=== PATIENT | male | born 1960 | race Caucasian/White ===

== ENCOUNTER 2021-07-27 16:27 | Inpatient (IN) ==
[2021-07-27] MEDS ORDERED: Isovue-370 500 ML BOTTLE IVP ONE (16:36)
[2021-07-27 16:59] LABS: ABG Base Excess 4 mEq/L (-2 to 3); ABG HCO3 34 mEq/L (21-27); ABG Oxygen Saturation 98 % (95-98); ABG PCO2 72 mmHg (35-45); ABG PH 7.29 pH Units (7.32-7.45); ABG PO2 126 mmHg (85-104); ABG TCO2 37 mEq/L (20-26)
[2021-07-27 17:00] LABS: Basophils # 0.1 K/mcL (0.0-0.2); Basophils % 0.4 %; Hemoglobin 17.5 g/dL (12.9-16.9); Immature Granulocytes % 0.5 % (0-4); Lymphocytes # 2.2 K/mcL (0.6-4.6); Lymphocytes % 14.7 %; Mean Corpuscular HGB Conc 32.4 g/dL (31.6-35.5); Mean Corpuscular Hemoglobin 29.3 pg (28.0-33.3); Mean Corpuscular Volume 90.3 fL (83.0-100.0); Mean Platelet Volume 10.1 fL (9.4-12.4); Monocytes % 6.4 %; Neutrophils # 11.7 K/mcL (1.6-8.9); Platelet Count 198 K/mcL (140-400); Red Blood Count 5.98 M/mcL (4.19-5.50); Red Cell Distribution Width 14.1 % (11.5-14.5)
[2021-07-27 17:17] LABS: INR 1.1; Prothrombin Time 12.1 Seconds (9.4-12.1)
[2021-07-27 17:19] LABS: Activated Partial Thrombo Time 34.6 Seconds (26.0-36.0)
[2021-07-27 17:28] LABS: Alanine Aminotransferase 24 Units/L (7-52); Albumin/Globulin Ratio 1.1 (1.1-2.2); Alkaline Phosphatase 93 Units/L (34-104); Aspartate Amino Transferase 21 Units/L (13-39); BUN/Creatinine Ratio 19 (6-26); Bilirubin,Direct 0.1 mg/dL (0.0-0.2); Bilirubin,Indirect 0.6 mg/dL (0.0-1.0); Bilirubin,Total 0.7 mg/dL (0.3-1.0); Blood Urea Nitrogen 20 mg/dL (8-23); Carbon Dioxide 36 mEq/L (23-29); Chloride 94 mEq/L (98-107); Globulin 3.7 g/dL (2.4-3.5); Glucose 326 mg/dL (70-105); Osmolality,Calculated 299 (280-300); Potassium 3.6 mEq/L (3.5-5.1); Sodium 137 mEq/L (136-145); Total Protein 7.7 g/dL (6.4-8.9); Troponin I 0.04 ng/mL (< 0.04); eGFR For African Americans > 60 (> 60); eGFR For Non-African Americans > 60 (> 60)
[2021-07-27] MEDS ORDERED: cefTRIAXone 1,000 MG in Water for inj. (sterile) 10 ML IVP ONE (18:28)
[2021-07-27 19:08] LABS: Influenza A PCR Negative (Negative); Influenza B PCR Negative (Negative); Resp. Syncytial Virus PCR Positive (Negative); SARS-CoV-2 by PCR (In House) Negative (Negative)
[2021-07-27] MEDS ORDERED: Ipratropium/Albuterol Neb 3 ML ONE (19:50)
[2021-07-27] MEDS: Ipratropium/Albuterol Neb 3 ML IH ONE ×3 (19:50→20:15)
[2021-07-27] MEDS ORDERED: Ondansetron 4 MG/2 ML VIAL IVP PRN (20:43)
[2021-07-27] MEDS ORDERED: Naloxone 0.4 MG/ML INJ IVP PRN (20:43)
[2021-07-27] MEDS ORDERED: Ipratropium/Albuterol Neb 3 ML IH PRN (20:46)
[2021-07-27] MEDS ORDERED: Dextrose Gel 15 GM/37.5 ML TUBE PO PRN ×2 (20:47)
[2021-07-27] MEDS ORDERED: *HR* Dextrose 50 % in Water (Syg) 50 ML SYRINGE IVP PRN (20:47)
[2021-07-27] MEDS ORDERED: D5% in Water 1,000 ML IVC PRN (20:47)
[2021-07-27 21:03] LABS: ABG Base Excess 8 mEq/L (-2 to 3); ABG HCO3 40 mEq/L (21-27); ABG Oxygen Saturation 81 % (95-98); ABG PCO2 85 mmHg (35-45); ABG PH 7.28 pH Units (7.32-7.45); ABG PO2 54 mmHg (85-104); ABG TCO2 43 mEq/L (20-26); Blood Gas Modality CPAP/PS; Blood Gas Pressure Support 12 cm H2O
[2021-07-27] MEDS: Azithromycin 500 MG in 0.9 % Sodium Chloride 250 ML IVPB SCH (21:04)
[2021-07-28 02:00] LABS: ABG Base Excess 10 mEq/L (-2 to 3); ABG HCO3 41 mEq/L (21-27); ABG Oxygen Saturation 95 % (95-98); ABG PCO2 76 mmHg (35-45); ABG PH 7.34 pH Units (7.32-7.45); ABG PO2 86 mmHg (85-104); ABG TCO2 43 mEq/L (20-26); Blood Gas Pressure Support 12 cm H2O
[2021-07-28] MEDS: methylPREDNISolone 125 MG/2 ML VIAL IVP SCH ×2 (06:12→17:03)
[2021-07-28 06:47] LABS: Basophils % 0.1 %; Hematocrit 49.5 % (37.5-50.1); Immature Granulocytes % 0.4 % (0-4); Lymphocytes # 1.2 K/mcL (0.6-4.6); Lymphocytes % 6.4 %; Mean Corpuscular HGB Conc 32.3 g/dL (31.6-35.5); Mean Corpuscular Hemoglobin 29.9 pg (28.0-33.3); Mean Corpuscular Volume 92.4 fL (83.0-100.0); Mean Platelet Volume 10.4 fL (9.4-12.4); Monocytes # 0.7 K/mcL (0.0-1.3); Monocytes % 3.7 %; Neutrophils # 15.9 K/mcL (1.6-8.9); Platelet Count 187 K/mcL (140-400); Red Blood Count 5.36 M/mcL (4.19-5.50); Red Cell Distribution Width 14.1 % (11.5-14.5); Segmented Neutrophils % 89.4 %; White Blood Count 17.8 K/mcL (4.3-11.1)
[2021-07-28 07:08] LABS: BUN/Creatinine Ratio 18 (6-26); Blood Urea Nitrogen 17 mg/dL (8-23); Calcium 9.2 mg/dL (8.6-10.3); Carbon Dioxide 38 mEq/L (23-29); Chloride 91 mEq/L (98-107); Chol/HDL Ratio 3.9 (0-4.9); Cholesterol 106 mg/dL (< 200); Glucose 423 mg/dL (70-105); HDL Cholesterol 27 mg/dL (40-59); LDL Cholesterol,Calculated 59 mg/dL (< 100); Magnesium 1.8 mg/dL (1.6-2.6); Osmolality,Calculated 294 (280-300); Potassium 4.3 mEq/L (3.5-5.1); Sodium 132 mEq/L (136-145); Triglycerides 102 mg/dL (< 150); eGFR For African Americans > 60 (> 60); eGFR For Non-African Americans > 60 (> 60)
[2021-07-28 07:20] LABS: Thyroid Stimulating Hormone 0.193 mcIU/mL (0.340-5.600)
[2021-07-28] MEDS: Insulin LISPRO 300 UNITS/3 ML VIAL SUBQ SCH ×4 (08:08→23:29)
[2021-07-28] MEDS: Cholecalciferol (D-3) 1,000 UNIT (25MCG) TABLET PO SCH (08:09)
[2021-07-28] MEDS: Loratadine 10 MG TABLET PO SCH (08:09)
[2021-07-28] MEDS: amLODIPine 5 MG TABLET PO SCH (08:09)
[2021-07-28] MEDS: Aspirin Enteric Coated 81 MG Tablet PO SCH (08:09)
[2021-07-28] MEDS: *HR* Enoxaparin 40 MG/0.4 ML SYRINGE SQ SCH (08:12)
[2021-07-28] MEDS: cefTRIAXone 1,000 MG in 0.9 % Sodium Chloride Mini Bag 100 ML IVPB SCH (08:12)
[2021-07-28] MEDS ORDERED: *HR* Glimepiride 4 MG TABLET PO SCH (09:00)
[2021-07-28 09:48] LABS: Estimated Average Glucose 197 mg/dl; Hemoglobin A1C 8.5 %
[2021-07-28] MEDS: Ipratropium/Albuterol Neb 3 ML IH SCH ×4 (11:45→23:31)
[2021-07-28] MEDS ORDERED: Insulin LISPRO 300 UNITS/3 ML VIAL SUBQ SCH (11:53)
[2021-07-28 13:43] LABS: C-Reactive Protein 170 mg/L (Less than 10)
[2021-07-28 15:34] LABS: Bacteria,Urine Few per hpf (None-Few); Bilirubin,Urine Negative (Negative); Blood,Urine Negative (Negative); Clarity,Urine Clear (Clear); Color,Urine Light-Yellow (Yellow); Glucose,Urine (UA) >=1000 mg/dL (Normal); Ketones,Urine Negative (Negative); Leukocyte Esterase,Urine Negative (Negative); Nitrite,Urine Negative (Negative); Protein,Urine Trace mg/dL (Neg-Trace); RBC,Urine 0-3 per hpf (0-3); Specific Gravity,Urine > 1.030 (1.010-1.025); Urobilinogen,Urine Normal (Normal); WBC,Urine 0-3 per hpf (0-3)
[2021-07-28] MEDS: Insulin DETEMIR 100 UNIT/ML X5UNITS SUBQ SCH (16:59)
[2021-07-28] MEDS ORDERED: Insulin DETEMIR 100 UNIT/ML X5UNITS SUBQ SCH (17:00)
[2021-07-28] MEDS: Azithromycin 500 MG in 0.9 % Sodium Chloride 250 ML IVPB SCH (20:32)
[2021-07-29] MEDS: Ipratropium/Albuterol Neb 3 ML IH SCH ×6 (03:44→23:44)
[2021-07-29] MEDS: methylPREDNISolone 125 MG/2 ML VIAL IVP SCH ×2 (05:13→16:49)
[2021-07-29 05:24] LABS: Basophils % 0.2 %; Hematocrit 47.5 % (37.5-50.1); Hemoglobin 15.7 g/dL (12.9-16.9); Immature Granulocytes % 0.9 % (0-4); Lymphocytes # 1.9 K/mcL (0.6-4.6); Lymphocytes % 10.9 %; Mean Corpuscular HGB Conc 33.1 g/dL (31.6-35.5); Mean Corpuscular Hemoglobin 30.5 pg (28.0-33.3); Mean Corpuscular Volume 92.4 fL (83.0-100.0); Monocytes # 1.3 K/mcL (0.0-1.3); Monocytes % 7.6 %; Platelet Count 225 K/mcL (140-400); Red Blood Count 5.14 M/mcL (4.19-5.50); Red Cell Distribution Width 13.8 % (11.5-14.5); Segmented Neutrophils % 80.4 %; White Blood Count 17.4 K/mcL (4.3-11.1)
[2021-07-29 05:29] LABS: BUN/Creatinine Ratio 26 (6-26); Blood Urea Nitrogen 24 mg/dL (8-23); Calcium 9.8 mg/dL (8.6-10.3); Carbon Dioxide 38 mEq/L (23-29); Chloride 93 mEq/L (98-107); Glucose 321 mg/dL (70-105); Osmolality,Calculated 292 (280-300); Potassium 3.8 mEq/L (3.5-5.1); Sodium 133 mEq/L (136-145); eGFR For African Americans > 60 (> 60); eGFR For Non-African Americans > 60 (> 60)
[2021-07-29 08:06] LABS: ABG Base Excess 10 mEq/L (-2 to 3); ABG HCO3 43 mEq/L (21-27); ABG Oxygen Saturation 95 % (95-98); ABG PCO2 96 mmHg (35-45); ABG PH 7.26 pH Units (7.32-7.45); ABG PO2 95 mmHg (85-104); ABG TCO2 46 mEq/L (20-26)
[2021-07-29] MEDS: Insulin LISPRO 300 UNITS/3 ML VIAL SUBQ SCH ×3 (08:13→16:52)
[2021-07-29] MEDS: Aspirin Enteric Coated 81 MG Tablet PO SCH (08:16)
[2021-07-29] MEDS: Loratadine 10 MG TABLET PO SCH (08:16)
[2021-07-29] MEDS: Cholecalciferol (D-3) 1,000 UNIT (25MCG) TABLET PO SCH (08:17)
[2021-07-29] MEDS: amLODIPine 5 MG TABLET PO SCH (08:17)
[2021-07-29] MEDS: cefTRIAXone 1,000 MG in 0.9 % Sodium Chloride Mini Bag 100 ML IVPB SCH (08:22)
[2021-07-29] MEDS: Insulin DETEMIR 100 UNIT/ML X5UNITS SUBQ SCH ×2 (08:23→21:11)
[2021-07-29] MEDS: *HR* Enoxaparin 40 MG/0.4 ML SYRINGE SQ SCH (08:23)
[2021-07-29] MEDS: Acetaminophen 325 MG TABLET PO PRN (17:00)
[2021-07-29] MEDS: Benzonatate 100 MG CAPSULE PO PRN (17:00)
[2021-07-29] MEDS ORDERED: Insulin LISPRO 300 UNITS/3 ML VIAL SUBQ SCH (21:00)
[2021-07-29] MEDS: Azithromycin 500 MG in 0.9 % Sodium Chloride 250 ML IVPB SCH (21:12)
[2021-07-30] MEDS: Ipratropium/Albuterol Neb 3 ML IH SCH ×6 (03:29→23:26)
[2021-07-30] MEDS: methylPREDNISolone 125 MG/2 ML VIAL IVP SCH ×2 (06:10→18:42)
[2021-07-30 06:40] LABS: Basophils % 0.2 %; Hematocrit 48.4 % (37.5-50.1); Hemoglobin 15.2 g/dL (12.9-16.9); Immature Granulocytes % 1.3 % (0-4); Lymphocytes # 1.7 K/mcL (0.6-4.6); Lymphocytes % 10.2 %; Mean Corpuscular HGB Conc 31.4 g/dL (31.6-35.5); Mean Corpuscular Hemoglobin 29.2 pg (28.0-33.3); Mean Corpuscular Volume 92.9 fL (83.0-100.0); Mean Platelet Volume 9.9 fL (9.4-12.4); Monocytes # 1.1 K/mcL (0.0-1.3); Monocytes % 6.9 %; Neutrophils # 13.4 K/mcL (1.6-8.9); Platelet Count 242 K/mcL (140-400); Red Blood Count 5.21 M/mcL (4.19-5.50); Red Cell Distribution Width 13.9 % (11.5-14.5); Segmented Neutrophils % 81.4 %; White Blood Count 16.5 K/mcL (4.3-11.1)
[2021-07-30 07:17] LABS: BUN/Creatinine Ratio 32 (6-26); Blood Urea Nitrogen 29 mg/dL (8-23); Calcium 9.4 mg/dL (8.6-10.3); Carbon Dioxide 41 mEq/L (23-29); Chloride 94 mEq/L (98-107); Glucose 323 mg/dL (70-105); Osmolality,Calculated 300 (280-300); Potassium 4.3 mEq/L (3.5-5.1); Sodium 136 mEq/L (136-145); eGFR For African Americans > 60 (> 60); eGFR For Non-African Americans > 60 (> 60)
[2021-07-30] MEDS: *HR* Enoxaparin 40 MG/0.4 ML SYRINGE SQ SCH (07:39)
[2021-07-30] MEDS: Cholecalciferol (D-3) 1,000 UNIT (25MCG) TABLET PO SCH (07:39)
[2021-07-30] MEDS: Aspirin Enteric Coated 81 MG Tablet PO SCH (07:40)
[2021-07-30] MEDS: amLODIPine 5 MG TABLET PO SCH (07:40)
[2021-07-30] MEDS: Loratadine 10 MG TABLET PO SCH (07:42)
[2021-07-30] MEDS: Insulin LISPRO 300 UNITS/3 ML VIAL SUBQ SCH ×3 (07:43→15:56)
[2021-07-30] MEDS: cefTRIAXone 1,000 MG in 0.9 % Sodium Chloride Mini Bag 100 ML IVPB SCH (07:43)
[2021-07-30] MEDS ORDERED: Insulin DETEMIR 100 UNIT/ML X5UNITS SUBQ SCH (09:00)
[2021-07-30] MEDS: Insulin DETEMIR 100 UNIT/ML X5UNITS SUBQ SCH ×2 (09:29→20:14)
[2021-07-30] MEDS: Benzonatate 100 MG CAPSULE PO PRN (09:31)
[2021-07-30] MEDS ORDERED: Insulin LISPRO 300 UNITS/3 ML VIAL SUBQ SCH (14:56)
[2021-07-30] MEDS: Azithromycin 250 MG TABLET PO SCH (20:13)
[2021-07-31 04:57] LABS: Basophils # 0.1 K/mcL (0.0-0.2); Basophils % 0.4 %; Hematocrit 47.2 % (37.5-50.1); Hemoglobin 15.1 g/dL (12.9-16.9); Lymphocytes # 1.3 K/mcL (0.6-4.6); Lymphocytes % 9.6 %; Mean Corpuscular Hemoglobin 29.2 pg (28.0-33.3); Mean Corpuscular Volume 91.3 fL (83.0-100.0); Mean Platelet Volume 9.8 fL (9.4-12.4); Platelet Count 244 K/mcL (140-400); Red Blood Count 5.17 M/mcL (4.19-5.50); Red Cell Distribution Width 13.5 % (11.5-14.5); White Blood Count 13.6 K/mcL (4.3-11.1)
[2021-07-31] MEDS: Ipratropium/Albuterol Neb 3 ML IH SCH ×5 (05:15→20:15)
[2021-07-31] MEDS: methylPREDNISolone 125 MG/2 ML VIAL IVP SCH (05:16)
[2021-07-31 05:17] LABS: BUN/Creatinine Ratio 30 (6-26); Blood Urea Nitrogen 26 mg/dL (8-23); Calcium 9.3 mg/dL (8.6-10.3); Carbon Dioxide 39 mEq/L (23-29); Chloride 94 mEq/L (98-107); Glucose 361 mg/dL (70-105); Osmolality,Calculated 297 (280-300); Potassium 4.3 mEq/L (3.5-5.1); Sodium 134 mEq/L (136-145); eGFR For African Americans > 60 (> 60); eGFR For Non-African Americans > 60 (> 60)
[2021-07-31] MEDS: Cholecalciferol (D-3) 1,000 UNIT (25MCG) TABLET PO SCH (07:59)
[2021-07-31] MEDS: amLODIPine 5 MG TABLET PO SCH (07:59)
[2021-07-31] MEDS: Loratadine 10 MG TABLET PO SCH (07:59)
[2021-07-31] MEDS: *HR* Enoxaparin 40 MG/0.4 ML SYRINGE SQ SCH (08:01)
[2021-07-31] MEDS: Aspirin Enteric Coated 81 MG Tablet PO SCH (08:01)
[2021-07-31] MEDS: Insulin LISPRO 300 UNITS/3 ML VIAL SUBQ SCH ×3 (08:02→17:27)
[2021-07-31] MEDS: cefTRIAXone 1,000 MG in 0.9 % Sodium Chloride Mini Bag 100 ML IVPB SCH (08:02)
[2021-07-31] MEDS: Insulin DETEMIR 100 UNIT/ML X5UNITS SUBQ SCH ×2 (10:41→19:56)
[2021-07-31] MEDS: Azithromycin 250 MG TABLET PO SCH (19:56)
[2021-07-31] MEDS ORDERED: Insulin LISPRO 300 UNITS/3 ML VIAL SUBQ SCH (21:00)
[2021-08-01] MEDS: Ipratropium/Albuterol Neb 3 ML IH SCH ×4 (00:21→11:34)
[2021-08-01] MEDS: Acetaminophen 325 MG TABLET PO PRN ×2 (03:02→09:36)
[2021-08-01 07:33] VITALS: TEMP 97.8
[2021-08-01] MEDS: Cholecalciferol (D-3) 1,000 UNIT (25MCG) TABLET PO SCH (08:04)
[2021-08-01] MEDS: Loratadine 10 MG TABLET PO SCH (08:05)
[2021-08-01] MEDS: Aspirin Enteric Coated 81 MG Tablet PO SCH (08:05)
[2021-08-01] MEDS: amLODIPine 5 MG TABLET PO SCH (08:05)
[2021-08-01] MEDS: Insulin LISPRO 300 UNITS/3 ML VIAL SUBQ SCH ×2 (08:06→11:48)
[2021-08-01] MEDS: *HR* Enoxaparin 40 MG/0.4 ML SYRINGE SQ SCH (08:08)
[2021-08-01] MEDS: Insulin DETEMIR 100 UNIT/ML X5UNITS SUBQ SCH (08:11)
[2021-08-01] MEDS ORDERED: predniSONE 20 MG TABLET PO SCH (09:00)
[2021-08-01 09:26] LABS: Basophils # 0.1 K/mcL (0.0-0.2); Basophils % 0.7 %; Eosinophils # 0.1 K/mcL (0.0-0.6); Eosinophils % 0.6 %; Hematocrit 51.9 % (37.5-50.1); Immature Granulocytes % 3.9 % (0-4); Lymphocytes # 3.3 K/mcL (0.6-4.6); Lymphocytes % 26.4 %; Mean Corpuscular HGB Conc 32.6 g/dL (31.6-35.5); Mean Corpuscular Hemoglobin 29.4 pg (28.0-33.3); Mean Corpuscular Volume 90.4 fL (83.0-100.0); Mean Platelet Volume 9.2 fL (9.4-12.4); Neutrophils # 7.6 K/mcL (1.6-8.9); Platelet Count 267 K/mcL (140-400); Red Blood Count 5.74 M/mcL (4.19-5.50); Red Cell Distribution Width 13.5 % (11.5-14.5); Segmented Neutrophils % 60.4 %; White Blood Count 12.5 K/mcL (4.3-11.1)
[2021-08-01 09:29] LABS: Hemoglobin 16.9 g/dL (12.9-16.9)
[2021-08-01 09:56] LABS: BUN/Creatinine Ratio 22 (6-26); Blood Urea Nitrogen 20 mg/dL (8-23); Calcium 9.2 mg/dL (8.6-10.3); Carbon Dioxide 41 mEq/L (23-29); Chloride 92 mEq/L (98-107); Glucose 278 mg/dL (70-105); Osmolality,Calculated 293 (280-300); Potassium 3.7 mEq/L (3.5-5.1); Sodium 135 mEq/L (136-145); eGFR For African Americans > 60 (> 60); eGFR For Non-African Americans > 60 (> 60)
[2021-08-01 11:28] VITALS: BP 173/98; PULSE 107
[2021-08-01 11:36] VITALS: O2SAT 93
== END 2021-08-01 15:35 | disposition home or self-care (01) | DRG 720 ==
LOC: EMEROOARM 16:27 → 2NENU 16:27 → SUATTDRO 07-28 07:52
PROVIDERS: ADMIT Student in an Organized Health Care Education/Training Program; ATTEND Internal Medicine